=== PATIENT | female | born 1955 | race Two or more races ===

== ENCOUNTER 2016-06-24 17:07 | Inpatient (IN) | payer OTHER ==
[~2016-06-24] VITALS: Ht 157.5 cm; Wt 84.1 kg
[2016-06-24] MEDS ORDERED: ALBUTEROL FS 2.5 MG/3 ML VIAL.NEB ONE ×2 (17:09→18:07)
[2016-06-24] MEDS ORDERED: IPRATROPIUM NEB FS 0.5 MG/2.5 ML AMPUL.NEB ONE ×2 (17:09→22:10)
--- NOTE | 2016-06-24 17:10 | NUR ---
PT bib ra from home for sob, high bp. Expiratory wheezing on bilateral lungs. Dyspneic at rest. Placed on monitor. Pt has Lhand #18 iv access. Blood sample collected sent to lab. RT at bedside started o2 as ordered
[2016-06-24] MEDS ORDERED: methylPREDNISolone SOD SUCC 125 MG/2ML VIAL ONE (17:16)
[2016-06-24 17:20] LABS: BASOPHILS # (AUTO) 0.1 /CMM (0.0-0.2); BASOPHILS % (AUTO) 0.9 % (0.0-2.0); EOSINOPHILS # (AUTO) 1.4 /CMM (0.0-0.7); EOSINOPHILS % (AUTO) 12.9 % (0.0-6.0); HEMATOCRIT 46 % (33-45); HEMOGLOBIN 15.1 g/dL (11.5-14.8); LYMPHOCYTES # (AUTO) 2.7 /CMM (0.8-4.8); LYMPHOCYTES % (AUTO) 24.8 % (20.0-44.0); MEAN CORPUSCULAR HEMOGLOBIN 28 PG (26.0-33.0); MEAN CORPUSCULAR HGB CONC 33 g/dl (31.0-36.0); MEAN CORPUSCULAR VOLUME 85 fL (82-100); MONOCYTES # (AUTO) 0.6 /CMM (0.1-1.30); MONOCYTES % (AUTO) 5.8 % (2.0-12.0); NEUTROPHILS # (AUTO) 5.9 /CMM (1.8-8.9); NEUTROPHILS % (AUTO) 55.6 % (43.0-81.0); PLATELET COUNT (AUTO) 270 /CMM (150-450); RDW COEFFICIENT OF VARIATION 12.7 (11.5-15.0); RED BLOOD CELL COUNT(AUTO) 5.42 MIL/uL (4.0-5.2); WHITE BLOOD COUNT (AUTO) 10.7 K/uL (4.3-11.0)
[2016-06-24] MEDS ORDERED: IPRATROPIUM NEB FS 0.5 MG/2.5 ML AMPUL.NEB NEB ONE (17:30)
[2016-06-24] MEDS ORDERED: ALBUTEROL FS 2.5 MG/3 ML VIAL.NEB NEB ONE (17:30)
[2016-06-24] MEDS ORDERED: methylPREDNISolone SOD SUCC 125 MG/2ML VIAL IV ONE (17:30)
[2016-06-24] MEDS ORDERED: ALBUTEROL FS 2.5 MG/3 ML VIAL.NEB CONTNEB ONE ×2 (17:30→18:30)
[2016-06-24 17:32] LABS: CALCIUM, SERUM 9.2 mg/dL (8.5-10.1); CARBON DIOXIDE 27 mmol/L (21-32); CHLORIDE 103 mmol/L (98-107); CREATININE 0.9 mg/dL (0.6-1.3); GFR 64 mL/min (>60); GLUCOSE 269 mg/dL (74-106); POTASSIUM 4.2 mmol/L (3.5-5.1); SODIUM SERUM 139 mmol/L (136-145); UREA NITROGEN, BLOOD 15 mg/dL (7-18)
--- NOTE | 2016-06-24 17:34 | NUR ---
XRAY AT BEDSIDE
[2016-06-24 17:39] LABS: TROPONIN I < 0.017 ng/mL (0.00-0.056)
[2016-06-24 17:43] LABS: ALANINE AMINOTRANSFERASE 50 U/L (12-78); ALBUMIN 3.9 g/dL (3.4-5.0); ALKALINE PHOSPHATASE 98 U/L (46-116); ASPARTATE AMINOTRANSFERASE 70 U/L (15-37); B-TYPE NATRIURETIC PEPTIDE 59 PG/ML (0-125); BILIRUBIN,DIRECT 0.2 mg/dL (0.0-0.2); BILIRUBIN,TOTAL 0.5 mg/dL (0.2-1.0); TOTAL PROTEIN, SERUM 7.5 g/dL (6.4-8.2)
[2016-06-24] MEDS ORDERED: GLIM4TAB PO (18:07)
[2016-06-24] MEDS ORDERED: MECL12.582 PO (18:07)
[2016-06-24] MEDS ORDERED: ALBU18HF2 INH (18:07)
[2016-06-24] MEDS ORDERED: ACET1TAB17 PO (18:07)
[2016-06-24] MEDS ORDERED: RANI150T12 PO (18:07)
[2016-06-24] MEDS ORDERED: CHOL500052 PO (18:07)
[2016-06-24] MEDS ORDERED: SPIR25TA4 PO (18:07)
[2016-06-24] MEDS ORDERED: INSU100V7 SQ (18:07)
[2016-06-24] MEDS ORDERED: TROL35.4 TP (18:07)
[2016-06-24] MEDS ORDERED: AMLO10TA4 PO (18:07)
[2016-06-24] MEDS ORDERED: VENL37.55 PO (18:07)
[2016-06-24] MEDS ORDERED: SITA100T PO (18:07)
[2016-06-24] MEDS ORDERED: TEMA15CA PO (18:07)
[2016-06-24] MEDS ORDERED: METF10002 PO (18:07)
[2016-06-24] MEDS ORDERED: LOSA1TAB15 PO (18:07)
[2016-06-24] MEDS ORDERED: CELE200C PO (18:07)
[2016-06-24] MEDS ORDERED: ATOR40TA PO (18:07)
[2016-06-24] MEDS ORDERED: FENO134C PO (18:07)
[2016-06-24] MEDS ORDERED: FLUT1DIS3 INH (18:07)
[2016-06-24] MEDS ORDERED: MONT10TA22 PO (18:07)
[2016-06-24] MEDS ORDERED: ASPI-605 PO (18:07)
--- NOTE | 2016-06-24 18:20 | NUR ---
GAVE REPORT TO [facility] TELEMET[facility] 309-1 REGINE MERCHANDISE DIRECTOR ADMITTING ASTHMA EXACERBATION .
--- NOTE | 2016-06-24 18:20 | NUR ---
PT WILL TRANSFER VIA ACLS PROTOCOL
--- NOTE | 2016-06-24 18:43 | NUR ---
RT NOTE: ENDORSE TREATMENT TO THRESHING OPERATOR RT(MAX).
--- NOTE | 2016-06-24 19:09 | NUR ---
REPORT GIVEN TO TREVOR FOR ELDER
[2016-06-24 19:23] VITALS: BP 145/72
--- NOTE | 2016-06-24 19:23 | NUR ---
BRUSH CLEARER SURVEYING NOTES: RECEIVED PATIENT IN BED FROM ED. GOT REPORT FROM BIB JEAN-BAPTISTE. PT A/OX4. FAMILY MEMBERS PRESENT AT BEDSIDE. PT ON NC 2LPM AND IS TOLERATING WELL. PT KEPT CLEAN, DRY, AND COMFORTABLE. IV ON L FOREARM AND IS PATENT AND INTACT. CALL LIGHT WITHIN PATIENT'S REACH. BED IN LOWEST, LOCKED POSITION, AND SIDE RAILS X2 UP. WILL CONTINUE TO MONITOR PT.
[2016-06-24 20:00] VITALS: BP 145/72
[2016-06-24] MEDS ORDERED: DEXTROSE 50%-WATER 50 ML DISP.SYRIN IV PRN (20:00)
[2016-06-24] MEDS ORDERED: ONDANSETRON HCL/PF 4 MG/2 ML VIAL IVP PRN (20:00)
[2016-06-24] MEDS ORDERED: IV SET PRIMARY PUMP SET 1 EA INFUS.SET MC ONE (20:34)
[2016-06-24] MEDS ORDERED: IV NS 0.9% 1,000 ML ONE (20:34)
[2016-06-24] MEDS ORDERED: CEFTRIAXONE 1 G in IV D5W 50 ML IV SCH (21:30)
[2016-06-24] MEDS ORDERED: INSULIN DETEMIR 100 UNIT/ML CARTRIDGE SQ SCH (22:00)
[2016-06-24] MEDS ORDERED: ALBUTEROL HALF STRENGTH 1.25 MG/3 ML VIAL.NEB ONE (22:11)
[2016-06-24] MEDS: IV NS 0.9% 1,000 ML IV PRN (22:12)
[2016-06-24] MEDS: IPRATROPIUM NEB FS 0.5 MG/2.5 ML AMPUL.NEB NEB PRN (22:16)
[2016-06-24] MEDS: ALBUTEROL FS 2.5 MG/0.5 ML VIAL.NEB NEB PRN (22:16)
[2016-06-24] MEDS ORDERED: INSULIN REGULAR, HUMAN 100 UNIT/ML 10 ML VIAL ONE (22:22)
[2016-06-24] MEDS ORDERED: INSULIN DETEMIR 100 UNIT/ML CARTRIDGE SQ ONE (22:22)
[2016-06-24] MEDS ORDERED: CEFTRIAXONE 1 G VIAL ONE (22:28)
[2016-06-24] MEDS ORDERED: IV D5W 50 ML IV ONE (22:29)
[2016-06-24] MEDS ORDERED: SECONDARY IV SET 1 EA INFUS.SET MC ONE (22:29)
[2016-06-24] MEDS: BLOOD SUGAR DIAGNOSTIC 1 EACH STRIP VI SCH (22:30)
--- NOTE | 2016-06-24 22:30 | NUR ---
RN NOTES: PATIENT NOTED TO HAVE WHEEZING UPON EXPIRATION, BREATHING AT RATE OF 24 PER MINUTE. CALLED RT FOR BREATHING TREATMENT.
[2016-06-24] MEDS: *INSULIN REGULAR(HUMULIN R)HUM 100 UNIT/ML VIAL SQ PRN (22:41)
[2016-06-25] VITALS (7 sets, daily range): BP systolic 130–152; BP diastolic 63–84
[2016-06-25] MEDS: BLOOD SUGAR DIAGNOSTIC 1 EACH STRIP VI SCH ×4 (06:35→22:08)
--- NOTE | 2016-06-25 06:39 | NUR ---
RN NOTES: PATIENT NOTED TO HAVE WHEEZING. CALLED RT FOR BREATHING TREATMENT.
[2016-06-25] MEDS: INSULIN REGULAR, HUMAN 100 UNIT/ML 3 ML VIAL SQ PRN ×3 (06:41→18:15)
[2016-06-25] MEDS ORDERED: ALBUTEROL FS 2.5 MG/0.5 ML VIAL.NEB ONE (06:48)
[2016-06-25] MEDS ORDERED: IPRATROPIUM NEB FS 0.5 MG/2.5 ML AMPUL.NEB ONE (06:48)
[2016-06-25 06:51] LABS: BASOPHILS % (AUTO) 0.1 % (0.0-2.0); EOSINOPHILS % (AUTO) 0.1 % (0.0-6.0); HEMATOCRIT 44 % (33-45); HEMOGLOBIN 14.6 g/dL (11.5-14.8); LYMPHOCYTES # (AUTO) 1.1 /CMM (0.8-4.8); LYMPHOCYTES % (AUTO) 11.9 % (20.0-44.0); MEAN CORPUSCULAR HEMOGLOBIN 28 PG (26.0-33.0); MEAN CORPUSCULAR HGB CONC 33 g/dl (31.0-36.0); MEAN CORPUSCULAR VOLUME 85 fL (82-100); MONOCYTES # (AUTO) 0.1 /CMM (0.1-1.30); MONOCYTES % (AUTO) 0.7 % (2.0-12.0); NEUTROPHILS # (AUTO) 8.3 /CMM (1.8-8.9); NEUTROPHILS % (AUTO) 87.2 % (43.0-81.0); PLATELET COUNT (AUTO) 279 /CMM (150-450); RDW COEFFICIENT OF VARIATION 13.4 (11.5-15.0); RED BLOOD CELL COUNT(AUTO) 5.23 MIL/uL (4.0-5.2); WHITE BLOOD COUNT (AUTO) 9.6 K/uL (4.3-11.0)
--- NOTE | 2016-06-25 07:02 | NUR ---
CREW LEADER/CONTROL ROOM OPERATOR CLOSING NOTES: PT IN BED AWAKE. PT A/O X4. NO SIGNS OR SYMPTOMS OF DISTRESS NOTED. PT VERBALIZED THAT SHE IS COUGHING. WILL FOLLOW UP ON ORDER FOR COUGH MEDICINE. ALL NEEDS WERE ATTENDED. PATIENT KEPT CLEAN, DRY, AND COMFORTABLE. BLOOD SUGAR WAS 278. PATIENT WAS GIVEN 9 UNITS OF HUMULIN R. BED KEPT IN LOCKED, LOWEST POSITION, AND SIDE RAILS X2 UP. CALL LIGHT WITHIN PT'S REACH. PT ON 2LPM VIA NC AND TOLERATING WELL. ON TELE MONITORING AT SINUS RHYTHM AT 90S. WILL ENDORSE TO DAY SHIFT NURSE FOR CONTINUITY OF CARE.
[2016-06-25 07:12] LABS: CALCIUM, SERUM 9.1 mg/dL (8.5-10.1); CREATININE 0.9 mg/dL (0.6-1.3); MAGNESIUM 1.8 mg/dL (1.8-2.4); PHOSPHORUS 3.5 mg/dL (2.5-4.9)
[2016-06-25 07:17] LABS: THYROID STIMULATING HORMONE 0.197 uIU/mL (0.358-3.74)
--- NOTE | 2016-06-25 08:00 | NUR ---
MS RN OPENING NOTES PATIENT RESTING IN BED. SHE IS A/0 X4. NO S/S OF DISTRESS NOTED. PATIENT CURRENTLY ON 2L/MIN NASAL CANNULA O2. PT COMPLAINED OF COUGH AND DR. BORGES WAS MADE AWARE AND PRESCRIBED GUAIFENESIN/CODEINE 10 ML. PT COMPLAINED OF SLIGHT HEADACHE AND TYLENOL WAS ADMINISTERED. PT EXPRESSED CONCERN WITH OXYGEN USE AT HOME AND STATED THAT SHE WOULD BENEFIT FROM USING OXYGEN AT HOME. WILL FURTHER ASSESS PATIENT TO SEE IF SHE IS QUALIFIED AND WILL FOLLOW UP WITH CAR LOADER. PT EXPRESSED CONCERN OVER NOT TAKING PLAVIX FOR THE DAY. WILL CALL HER PCP AND FOLLOW UP. PT REFUSED ASPIRIN AND STATED SHE ONLY TAKES IT ONCE A WEEK AND DOES NOT FEEL COMFORTABLE TAKING IT MORE. PT CURRENTLY ON TELE MONITORING AND IS AT SINUS RHYTHM IN THE 90'S. ALL PATIENT NEEDS WERE MET FOR THE MOMENT. BED IS AT LOW AND LOCKED POSITION. IV IS PATENT AND INTACT. PATIENT COMFORTABLY RESTING IN BED WITH FAMILY MEMBER AT BEDSIDE. WILL CONTINUE TO MONITOR.
[2016-06-25] MEDS: AMLODIPINE BESYLATE 10 MG TABLET PO SCH (08:42)
[2016-06-25] MEDS: FENOFIBRATE NANOCRYS (145 MG) 145 MG TABLET PO SCH (08:42)
[2016-06-25] MEDS: METFORMIN 500 MG TABLET PO SCH ×2 (08:42→17:47)
[2016-06-25] MEDS: LOSARTAN/HCTZ 50-12.5MG/ 1 EA TABLET PO SCH (08:42)
[2016-06-25] MEDS: SPIRONOLACTONE 25 MG TABLET PO SCH (08:43)
[2016-06-25] MEDS: GLIMEPIRIDE 4 MG TABLET PO SCH ×2 (08:43→17:47)
[2016-06-25] MEDS: VENLAFAXINE XR 37.5 MG CAP.SR.24H PO SCH (08:43)
[2016-06-25] MEDS: LINAGLIPTIN 5 MG TABLET PO SCH (08:43)
[2016-06-25] MEDS: PANTOPRAZOLE 40 MG TABLET.DR PO SCH (08:43)
[2016-06-25] MEDS ORDERED: INSULIN DETEMIR 100 UNIT/ML CARTRIDGE SQ SCH (08:50)
[2016-06-25] MEDS: ACETAMINOPHEN 325 MG TABLET PO PRN ×2 (08:50→15:53)
[2016-06-25] MEDS: GUAIFENESIN/CODEINE 10 ML UDC PO PRN ×2 (08:54→15:10)
[2016-06-25] MEDS: ASPIRIN EC 81 MG TABLET.DR PO SCH (09:00)
[2016-06-25] MEDS ORDERED: methylPREDNISolone SOD SUCC 40 MG/ML VIAL IV SCH (09:00)
[2016-06-25] MEDS ORDERED: SITAGLIPTIN PHOSPHATE 50 MG TABLET PO SCH (09:00)
[2016-06-25] MEDS: FLUTICASONE/SALMETEROL DISKUS IH SCH ×2 (11:41→17:47)
[2016-06-25] MEDS: CLOPIDOGREL BISULFATE 75 MG TABLET PO SCH (11:41)
--- NOTE | 2016-06-25 15:42 | NUR ---
PT COMPLAINING OF COUGH AND SOB THROUGHOUT THE DAY. GUAIFENESIN/CODEINE 10 ML WAS ADMINISTERED AT 1510. PT EXPRESSES CONCERN REGARDING OXYGEN USE AT HOME. DR. BORGES INFORMED PT THAT SHE MIGHT BE DISCHARGED TOMORROW BASED ON HOW SHE TOLERATES AMBULATING WITHOUT OXYGEN. PT O2 SATURATION DROPS TO 87% WITHOUT NASAL CANNULA. PT CURRENTLY RESTING IN BED ON 3L/MIN NASAL CANNULA. PT STATED THAT SHE HAS NOT HAD A BM IN 2 DAYS AND SHE FEELS UNCOMFORTABLE. DR BORGES WAS NOTIFIED AND COLACE WAS ORDERED. ORDERS NOTED AND WILL BE CARRIED OUT.
[2016-06-25] MEDS: DOCUSATE SODIUM 100 MG CAPSULE PO PRN (16:11)
[2016-06-25] MEDS ORDERED: IV SET PRIMARY PUMP SET 1 EA INFUS.SET MC ONE (17:17)
[2016-06-25] MEDS: IV NS 0.9% 1,000 ML IV PRN (17:28)
[2016-06-25] MEDS: methylPREDNISolone SOD SUCC 40 MG/ML VIAL IV SCH (17:48)
[2016-06-25] MEDS: TEMAZEPAM 15 MG CAPSULE PO SCH (18:00)
[2016-06-25] MEDS: ATORVASTATIN 40 MG TABLET PO SCH (18:25)
[2016-06-25] MEDS: MONTELUKAST SODIUM (10MG) 10 MG TABLET PO SCH (18:35)
--- NOTE | 2016-06-25 19:27 | NUR ---
PT IS SITTING UP ON CHAIR A/O X4. CURRENTLY ON 3L/MIN NASAL CANNULA AND 75ML/HR OF NORMAL SALINE RUNNING. IV WAS INTACT AND PATENT. NO S/S OF DISTRESS NOTED. ENDORSED CARE TO PIG FURNACE OPERATOR NURSE. PIG FURNACE OPERATOR NURSE AWARE OF FOLLOWING UP WITH ATM TECHNICIAN FOR OXYGEN USE AT HOME.
--- NOTE | 2016-06-25 19:45 | NUR ---
RN OPENING NOTES RECEIVED REPORT FROM ANASTASIA RN. FOUND Pt SITTING UP IN CHAIR. NO S/S OF ACUTE DISTRESS OR SEVERE SOB NOTED. Pt ON 3L NC. Pt IS A/OX4, AMBULATORY, VERBAL, ABLE TO MAKE NEEDS KNOWN. NO C/O PAIN AT THIS TIME. IV ACCESS ON L HAND, IVF NS @75ML/HR INFUSING WELL. SAFETY MEASURES IN PLACE. CALL LIGHT AND BEDSIDE TABLE WITHIN REACH. WILL CONTINUE TO MONITOR Pt THROUGHOUT THE NIGHT FOR SAFETY.
--- NOTE | 2016-06-25 22:00 | NUR ---
RN NOTES ACCUCHECK BG 218. ADMINISTERED SCHEDULED LEVEMIR 30UN. PROVIDED SNACKS AT BEDSIDE. WILL CONTINUE TO MONITOR Pt's BG LEVELS.
[2016-06-25] MEDS: INSULIN DETEMIR 100 UNIT/ML CARTRIDGE SQ SCH (22:12)
[2016-06-25] MEDS: IPRATROPIUM NEB FS 0.5 MG/2.5 ML AMPUL.NEB NEB PRN (22:47)
[2016-06-25] MEDS: ALBUTEROL FS 2.5 MG/0.5 ML VIAL.NEB NEB PRN (22:47)
[2016-06-26] MEDS: BLOOD SUGAR DIAGNOSTIC 1 EACH STRIP VI SCH ×4 (06:22→22:40)
[2016-06-26] MEDS: INSULIN REGULAR, HUMAN 100 UNIT/ML 3 ML VIAL SQ PRN ×3 (06:26→17:28)
--- NOTE | 2016-06-26 06:29 | NUR ---
RN NOTES ACCUCHECK BG 205. ADMINISTERED 6UN OF INSULIN PER SLIDING SCALE.
--- NOTE | 2016-06-26 06:30 | NUR ---
RN CLOSING NOTES NO SIGNIFICANT CHANGES DURING THE NOTE. NO S/S OF ACUTE DISTRESS OR SOB NOTED. ALL NEEDS MET AND ATTENDED TO. SAFETY MEASURES IN PLACE. WILL ENDORSE TO DAYSHIFT RN FOR Pt's ELDER.
--- NOTE | 2016-06-26 07:30 | NUR ---
RN MS NOTES PT IN BED, AWAKE, ALERT AND ORIENTED, NO SOB, RESPIRATIONS NORMAL AND NOT LABORED, NO COMPLAINT OF PAIN, IV FLUIDS INFUSING WELL, CALL LIGHT WITHIN REACH, KEPT FASHION BUYER BED.
[2016-06-26 07:37] LABS: BASOPHILS % (AUTO) 0.1 % (0.0-2.0); EOSINOPHILS % (AUTO) 0.2 % (0.0-6.0); HEMATOCRIT 42 % (33-45); HEMOGLOBIN 13.8 g/dL (11.5-14.8); LYMPHOCYTES # (AUTO) 1.5 /CMM (0.8-4.8); LYMPHOCYTES % (AUTO) 9.5 % (20.0-44.0); MEAN CORPUSCULAR HEMOGLOBIN 28 PG (26.0-33.0); MEAN CORPUSCULAR HGB CONC 33 g/dl (31.0-36.0); MEAN CORPUSCULAR VOLUME 85 fL (82-100); MONOCYTES # (AUTO) 0.6 /CMM (0.1-1.30); MONOCYTES % (AUTO) 3.6 % (2.0-12.0); NEUTROPHILS # (AUTO) 13.4 /CMM (1.8-8.9); NEUTROPHILS % (AUTO) 86.6 % (43.0-81.0); PLATELET COUNT (AUTO) 270 /CMM (150-450); RDW COEFFICIENT OF VARIATION 13.9 (11.5-15.0); RED BLOOD CELL COUNT(AUTO) 4.94 MIL/uL (4.0-5.2); WHITE BLOOD COUNT (AUTO) 15.5 K/uL (4.3-11.0)
[2016-06-26 07:42] LABS: CALCIUM, SERUM 8.7 mg/dL (8.5-10.1); CREATININE 0.9 mg/dL (0.6-1.3); POTASSIUM 4.3 mmol/L (3.5-5.1)
[2016-06-26 08:00] VITALS: BP 128/67
[2016-06-26] MEDS: ASPIRIN EC 81 MG TABLET.DR PO SCH ×2 (09:00→09:25)
[2016-06-26] MEDS: methylPREDNISolone SOD SUCC 40 MG/ML VIAL IV SCH ×2 (09:24→17:20)
[2016-06-26] MEDS: LOSARTAN/HCTZ 50-12.5MG/ 1 EA TABLET PO SCH (09:24)
[2016-06-26] MEDS: FLUTICASONE/SALMETEROL DISKUS IH SCH ×2 (09:24→17:23)
[2016-06-26] MEDS: GLIMEPIRIDE 4 MG TABLET PO SCH ×2 (09:24→17:19)
[2016-06-26] MEDS: FENOFIBRATE NANOCRYS (145 MG) 145 MG TABLET PO SCH (09:25)
[2016-06-26] MEDS: AMLODIPINE BESYLATE 10 MG TABLET PO SCH (09:25)
[2016-06-26] MEDS: METFORMIN 500 MG TABLET PO SCH ×2 (09:25→17:19)
[2016-06-26] MEDS: LINAGLIPTIN 5 MG TABLET PO SCH (09:25)
[2016-06-26] MEDS: SPIRONOLACTONE 25 MG TABLET PO SCH (09:25)
[2016-06-26] MEDS: PANTOPRAZOLE 40 MG TABLET.DR PO SCH (09:25)
[2016-06-26] MEDS: VENLAFAXINE XR 37.5 MG CAP.SR.24H PO SCH (09:25)
[2016-06-26] MEDS: CLOPIDOGREL BISULFATE 75 MG TABLET PO SCH (09:25)
[2016-06-26] MEDS: IV NS 0.9% 1,000 ML IV PRN (09:29)
[2016-06-26] MEDS: ALBUTEROL FS 2.5 MG/0.5 ML VIAL.NEB NEB PRN ×2 (10:08→15:17)
[2016-06-26] MEDS: IPRATROPIUM NEB FS 0.5 MG/2.5 ML AMPUL.NEB NEB PRN ×2 (10:08→15:17)
--- NOTE | 2016-06-26 12:15 | NUR ---
RN MS NOTES PT IN BED, RESTING, NOT IN PAIN, STATED SHE FELT BETTER AFTER BREATHING TREATMENT, PT SEEN BY REGINE SIZER HAND, PLAN OF CARE DISCUSSED WITH PT, VERBALIZED UNDERSTANDING, ASSISTED PT TO BATHROOM NEEDED, PT ABLE TO SIT IN HER CHAIR TOLERATED, CALL LIGHT WITHIN REACH.
[2016-06-26] MEDS: DOCUSATE SODIUM 100 MG CAPSULE PO PRN (13:04)
[2016-06-26 16:00] VITALS: BP 124/74
[2016-06-26] MEDS: MONTELUKAST SODIUM (10MG) 10 MG TABLET PO SCH (17:19)
[2016-06-26] MEDS: ATORVASTATIN 40 MG TABLET PO SCH (17:19)
[2016-06-26] MEDS: TEMAZEPAM 15 MG CAPSULE PO SCH (18:00)
--- NOTE | 2016-06-26 18:32 | NUR ---
RN MS NOTES PT IN BED, AWAKE, ALERT AND ORIENTED, NOT IN DISTRESS, BREATHING TREATMENT GIVEN ORDERED, NO COMPLAINT OF PAIN, IV FLUIDS INFUSING WELL, BLOOD SUGAR CHECKED, INSULIN GIVEN PER SLIDING SCALE ORDERED, PM CARE RENDERED, ASSISTED TO BATHROOM NEEDED.
--- NOTE | 2016-06-26 19:35 | NUR ---
RN OPENING NOTES RECEIVED REPORT FROM ANASTASIA RNFCO. FOUND Pt AWAKE, RESTING IN BED. FAMILY VISITING AT BEDSIDE. NO S/S OF ACUTE DISTRESS OR SOB NOTED. NO C/O PAIN AT THIS TIME. Pt IS A/OX4, VERBAL, ABLE TO MAKE NEEDS KNOWN. Pt IS AMBULATORY. IV ACCESS ON L HAND NS @75ML/HR. D/C PLANNING FOR TOMORROW. SAFETY MEASURES IN PLACE. BED LOW, LOCKED, HOB ELEVATED, SIDE RAILS UP, CALL LIGHT AND BEDSIDE TABLE WITHIN REACH. WILL CONTINUE TO MONITOR Pt THROUGHOUT THE NIGHT FOR SAFETY.
[2016-06-26] MEDS: IPRATROPIUM NEB FS 0.5 MG/2.5 ML AMPUL.NEB NEB SCH (19:46)
[2016-06-26] MEDS: ALBUTEROL FS 2.5 MG/0.5 ML VIAL.NEB NEB SCH (19:46)
[2016-06-26 20:51] VITALS: BP 136/72
[2016-06-26 22:00] VITALS: BP 136/72
--- NOTE | 2016-06-26 22:00 | NUR ---
RN NOTES ACCUCHECK BG 280. ADMINISTERED SCHEDULED 30UN OF LEVEMIR. WITH ADDITIONAL INSULIN SLIDING SCALE COVERAGE OF 6UN.
[2016-06-26] MEDS: INSULIN DETEMIR 100 UNIT/ML CARTRIDGE SQ SCH (22:46)
[2016-06-26] MEDS: *INSULIN REGULAR(HUMULIN R)HUM 100 UNIT/ML VIAL SQ PRN (22:47)
[2016-06-27] MEDS: IV NS 0.9% 1,000 ML IV PRN (01:05)
[2016-06-27] MEDS: ALBUTEROL FS 2.5 MG/0.5 ML VIAL.NEB NEB SCH ×3 (01:15→12:35)
[2016-06-27] MEDS: IPRATROPIUM NEB FS 0.5 MG/2.5 ML AMPUL.NEB NEB SCH ×3 (01:15→12:35)
--- NOTE | 2016-06-27 02:20 | NUR ---
RN NOTES ENDORSED TO RN, DICK FOR Pt's ELDER
--- NOTE | 2016-06-27 02:21 | NUR ---
RN NOTE RECEIVED REPORT. PT RESTING WITH EYES CLOSED. NO DISTRESS NOTED AT THIS TIME.WILL MONITOR.
[2016-06-27] MEDS: BLOOD SUGAR DIAGNOSTIC 1 EACH STRIP VI SCH ×3 (06:30→18:25)
[2016-06-27] MEDS: INSULIN REGULAR, HUMAN 100 UNIT/ML 3 ML VIAL SQ PRN ×3 (06:37→18:27)
--- NOTE | 2016-06-27 06:41 | NUR ---
RN NOTE PT SITTING UP IN CHAIR. NO DISTRESS NOTED AT THIS TIME. NO SOB/WHEEZING, ON NC 2L. IV INTACT AND PATENT, TOLERATING FLUIDS WELL. ALL NEEDS ATTENDED TO, CALL LIGHT IN REACH. WILL F/U WITH DAY SHIFT FOR ELDER.
--- NOTE | 2016-06-27 07:30 | NUR ---
RN MS NOTES PT IN BED, AWAKE, ALERT AND ORIENTED, NO COMPLAINT OF PAIN, RESPIRATIONS NORMAL, ON O2 AT 3LPM VIA N/C, STATED SHE IS FEELING BETTER, CALL LIGHT WITHIN REACH, KEPT COMFORTABLE.
[2016-06-27 08:00] VITALS: BP 143/67
[2016-06-27] MEDS: FLUTICASONE/SALMETEROL DISKUS IH SCH ×2 (08:51→18:21)
[2016-06-27] MEDS: methylPREDNISolone SOD SUCC 40 MG/ML VIAL IV SCH ×2 (08:51→17:00)
[2016-06-27] MEDS: VENLAFAXINE XR 37.5 MG CAP.SR.24H PO SCH (08:52)
[2016-06-27] MEDS: SPIRONOLACTONE 25 MG TABLET PO SCH (08:53)
[2016-06-27] MEDS: FENOFIBRATE NANOCRYS (145 MG) 145 MG TABLET PO SCH (08:53)
[2016-06-27] MEDS: GLIMEPIRIDE 4 MG TABLET PO SCH ×2 (08:53→18:22)
[2016-06-27] MEDS: LOSARTAN/HCTZ 50-12.5MG/ 1 EA TABLET PO SCH (08:53)
[2016-06-27] MEDS: METFORMIN 500 MG TABLET PO SCH ×2 (08:53→18:21)
[2016-06-27] MEDS: PANTOPRAZOLE 40 MG TABLET.DR PO SCH (08:53)
[2016-06-27] MEDS: LINAGLIPTIN 5 MG TABLET PO SCH (08:53)
[2016-06-27] MEDS: CLOPIDOGREL BISULFATE 75 MG TABLET PO SCH (08:53)
[2016-06-27] MEDS: ASPIRIN EC 81 MG TABLET.DR PO SCH ×2 (08:53→09:00)
[2016-06-27] MEDS: AMLODIPINE BESYLATE 10 MG TABLET PO SCH (08:54)
[2016-06-27] MEDS: DOCUSATE SODIUM 100 MG CAPSULE PO PRN ×2 (09:06→18:22)
[2016-06-27] MEDS: GUAIFENESIN/CODEINE 10 ML UDC PO PRN (11:04)
[2016-06-27] MEDS ORDERED: ALBUTEROL FS 2.5 MG/0.5 ML VIAL.NEB NEB ONE (12:30)
--- NOTE | 2016-06-27 13:00 | NUR ---
RN MS NOTES PT IN BED, AWAKE, ALERT AND ORIENTED, NO COMPLAINT OF PAIN, ASSISTED IN GOING TO THE BATHROOM, IV FLUIDS INFUSING WELL, CALL LIGHT WITHIN REACH.
[2016-06-27 16:21] VITALS: BP 140/66
[2016-06-27] MEDS: MONTELUKAST SODIUM (10MG) 10 MG TABLET PO SCH (18:22)
[2016-06-27] MEDS: ATORVASTATIN 40 MG TABLET PO SCH (18:22)
--- NOTE | 2016-06-27 18:45 | NUR ---
RN MS NOTES PT SEEN BY REGINE MARKETING SUPPORT SPECIALIST, DISCHARGE ORDER GIVEN, DISCHARGE AND MEDICATION INSTRUCTIONS PROVIDED TO PT AND DAUGHTER BLAYNE, VERBALIZED UNDERSTANDING, PT TO GO HOME WITH O2, O2 COMPANY CAME, PT TEACHING REGARDING O2 USE DONE, PT AND DAUGHTER VERBALIZED UNDERSTANDING, NEW PRESCRIPTION GIVEN TO PT, BELONGINGS ACCOUNTED FOR, ASSISTED TO WHEELCHAIR, ASSISTED TO HOSPITAL LOBBY VIA WHEELCHAIR, LEFT WITH PORTABLE O2, WENT HOME WITH DAUGHTER IN STABLE CONDITION.
== END 2016-06-27 18:49 | disposition home or self-care (01) | DRG 141 ==
LOC: ER 17:09 → TELE 19:22 → MED 06-25 16:36
PROVIDERS: ADMIT Nurse Practitioner Acute Care; ATTEND Nurse Practitioner Acute Care
DX: J45.901 Unspecified asthma with (acute) exacerbation (principal); J96.01 Acute respiratory failure with hypoxia; E11.65 Type 2 diabetes mellitus with hyperglycemia; I10 Essential (primary) hypertension; E78.5 Hyperlipidemia, unspecified; I25.10 Atherosclerotic heart disease of native coronary artery without angina pectoris; D72.829 Elevated white blood cell count, unspecified; Z95.5 Presence of coronary angioplasty implant and graft; E66.9 Obesity, unspecified; E88.81 Metabolic syndrome and other insulin resistance; E78.00 Pure hypercholesterolemia, unspecified; E78.1 Pure hyperglyceridemia; T38.0X5A Adverse effect of glucocorticoids and synthetic analogues, initial encounter; Z68.33 Body mass index [BMI] 33.0-33.9, adult
CPT/HCPCS: 36415; 71010-TC; 80048-TC; 80061-TC; 80076-TC; 82962-TC; 83735-TC; 83880; 84100-TC; 84443-TC; 84484-TC; 85025-TC; 87040-TC; 94799-TC; A4606; J0696; J1815; J2920; J2930; J7030; J7060; Z7610

== ENCOUNTER 2020-02-19 09:20 | Emergency (ER) | payer OTHER ==
[~2020-02-19] VITALS: Ht 160 cm; Wt 89.8 kg
[2020-02-19 09:20] VITALS: BP 157/80
[~2020-02-19 09:20] MED LIST: ACET1TAB17 PO; ALBU18HF2 INH; AMLO10TA4 PO; ASPI-605 PO; ATOR40TA PO; CELE200C PO; CHOL500052 PO; FENO134C PO; FLUT1DIS3 INH; GLIM4TAB PO; INSU100V7 SQ; LOSA1TAB15 PO; MECL-182 PO; METF-442 PO; MONT10TA22 PO; RANI-655 PO; SITA100T PO; SPIR25TA6 PO; TEMA15CA PO; TROL35.4 TP; VENL37.55 PO
[2020-02-19] MEDS ORDERED: ACETAMINOPHEN 325 MG TABLET ONE (09:59)
[2020-02-19 10:09] LABS: BASOPHILS # (AUTO) 0.1 /CMM (0.0-0.2); BASOPHILS % (AUTO) 2.2 % (0.0-2.0); EOSINOPHILS % (AUTO) 0.1 % (0.0-6.0); HEMATOCRIT 43 % (33-45); HEMOGLOBIN 14.6 g/dL (11.5-14.8); LYMPHOCYTES # (AUTO) 0.7 /CMM (0.8-4.8); MEAN CORPUSCULAR HGB CONC 34 g/dl (31.0-36.0); MEAN CORPUSCULAR VOLUME 86 fL (82-100); MONOCYTES # (AUTO) 0.4 /CMM (0.1-1.30); MONOCYTES % (AUTO) 7.4 % (2.0-12.0); NEUTROPHILS % (AUTO) 77.3 % (43.0-81.0); PLATELET COUNT (AUTO) 158 /CMM (150-450); RED BLOOD CELL COUNT(AUTO) 4.99 MIL/uL (4.0-5.2); WHITE BLOOD COUNT (AUTO) 5.2 K/uL (4.3-11.0)
[2020-02-19 10:11] LABS: CALCIUM, SERUM 9.6 mg/dL (8.5-10.1); CARBON DIOXIDE 23 mmol/L (21-32); CHLORIDE 100 mmol/L (98-107); CREATININE 0.9 mg/dL (0.6-1.3); GLUCOSE 298 mg/dL (74-106); POTASSIUM 3.9 mmol/L (3.5-5.1); SODIUM SERUM 135 mmol/L (136-145); UREA NITROGEN, BLOOD 13 mg/dL (7-18)
[2020-02-19] MEDS: ACETAMINOPHEN 325 MG TABLET PO ONE (10:12)
--- NOTE | 2020-02-19 10:36 | NUR ---
DAUGHTER'S CELL [phone]
--- NOTE | 2020-02-19 10:59 | NUR ---
SHARI,DAUGHTER CALLED FOR VALUE ADVISOR
== END 2020-02-19 11:00 | disposition home or self-care (01) ==
LOC: ER 09:21
DX: U07.1 COVID-19 (principal); M79.18 Myalgia, other site; E11.9 Type 2 diabetes mellitus without complications; I10 Essential (primary) hypertension; J45.909 Unspecified asthma, uncomplicated; Z79.4 Long term (current) use of insulin; Z79.899 Other long term (current) drug therapy; Z79.82 Long term (current) use of aspirin
CPT/HCPCS: 36415; 71045-TC; 80048-TC; 84484-TC; 85025-TC